=== PATIENT | female | born 1960 | race Caucasian/White ===

== ENCOUNTER → 2017-08-03 | Outpatient (CLI) | payer OTHER ==
[~2017-08-03] MED LIST: ASPI81TA94 PO; AZAT50TA25 PO; BRIM5DRO7 OP; CHOL500045 PO; LACT1CAP4 PO; MULT-1377 PO; OMEG500C5 PO; TURM500C7 PO; [UNRECOGNIZED DRUG - CODE] IJ; [UNRECOGNIZED DRUG - CODE] PO
--- NOTE | 2017-08-04 09:54 | RADIOLOGY IMAGING REPORT ---
FACILITY: [facility] PATIENT NAME: VOLODYMYR MONROY : [id number] MR: [id number] V: [id number] EXAM DATE: [id number] ORDERING PHYSICIAN: ALANA KRAFT TECHNOLOGIST: Nazia Hunter PROCEDURE:LEFT DIGITAL DIAGNOSTIC MAMMOGRAM WITH CAD ASSISTED INTERPRETATION AND 3D BREAST TOMOSYNTHESIS. COMPARISON:None. INDICATIONS:LEFT BREAST LUMP 2 TO 3 O'CLOCK POSITION. FINDINGS: Moderately dense heterogeneous fibroglandular tissue is seen throughout the left breast. The parenchymal pattern has remained stable when allowing for difference in mammographic technique and patient positioning. There is no demonstration of malignant appearing mass, malignant appearing calcification or other secondary sign of malignancy in the left breast. Today's left breast ultrasound revealed a 4 mm tiny cyst in the 2 o'clock position of the left breast which likely does not account for patient's palpable findings. DIAGNOSTIC CATEGORY 2--BENIGN FINDING. RECOMMENDATIONS: ROUTINE MAMMOGRAM AND CLINICAL EVALUATION. IMPRESSION: BI-RADS 2: No significant abnormality of the left breast is seen. Clinical followup recommended for patient's palpable findings. Of note, a negative mammogram or ultrasound report should not preclude biopsy of a clinically suspicious lesion. Dictated by: Caitie Bates M.D. on 08/03/2017 at 16:06 Transcribed by: CARI on 08/03/2017 at 20:00 Approved by: Caitie Bates M.D. on 08/04/2017 at 9:53 [facility]
--- NOTE | 2017-08-04 09:54 | RADIOLOGY IMAGING REPORT ---
FACILITY: [facility] PATIENT NAME: VOLODYMYR MONROY : [id number] MR: [id number] V: [id number] EXAM DATE: ORDERING PHYSICIAN: ALANA KRAFT TECHNOLOGIST: Star Kumar PROCEDURE: LEFT BREAST ULTRASOUND COMPARISON:None. INDICATIONS:LEFT BREAST MASS 2 TO 3 O'CLOCK POSITION. FINDINGS: The entire left breast was imaged. At the time of the sonogram the patient stated her area of interest was 12:30 although the paperwork states 2 to 3 o'clock. No sonographic abnormality was identified throughout the left breast other than a 4 mm cyst in the 2 o'clock position. DIAGNOSTIC CATEGORY 2--BENIGN FINDING. RECOMMENDATIONS: ROUTINE MAMMOGRAM AND CLINICAL EVALUATION. CLINICAL EVALUATION. IMPRESSION: BI-RADS 2: There is a 4 mm cyst in the 2 o'clock position of the left breast. Clinical followup recommended for patient's palpable findings. Dictated by: Caitie Bates M.D. on 08/03/2017 at 16:07 Transcribed by: CARI on 08/03/2017 at 19:50 Approved by: Caitie Bates M.D. on 08/04/2017 at 9:53 [facility]
== END ==
LOC: US 02:22
PROVIDERS: ATTEND Family Medicine
DX: N60.02 Solitary cyst of left breast (principal)
CPT/HCPCS: 77065

== ENCOUNTER → 2018-03-18 | Outpatient (CLI) | payer OTHER ==
[2018-03-18 10:53] LABS: LDL CHOLESTEROL 143 mg/dl
== END ==
LOC: LAB 10:21
PROVIDERS: ATTEND Family Medicine
DX: E78.5 Hyperlipidemia, unspecified (principal); H34.239 Retinal artery branch occlusion, unspecified eye; H54.7 Unspecified visual loss
CPT/HCPCS: 36415; 82040; 82247; 82310; 82374; 82435; 82465; 82565; 82947; 83718; 84075; 84132; 84155; 84295; 84450; 84460; 84478; 84520; 85027

== ENCOUNTER → 2018-08-21 | Outpatient (CLI) | payer OTHER ==
[2018-08-21 08:27] LABS: PLATELET COUNT, AUTOMATED 261 K/uL (150-450)
[2018-08-21 08:45] LABS: LDL CHOLESTEROL 149 mg/dl
== END ==
LOC: LAB 07:48
PROVIDERS: ATTEND Family Medicine
DX: H34.9 Unspecified retinal vascular occlusion (principal); E78.5 Hyperlipidemia, unspecified; R73.01 Impaired fasting glucose
CPT/HCPCS: 36415; 82040; 82247; 82310; 82374; 82435; 82465; 82565; 82947; 83036; 83718; 84075; 84132; 84155; 84295; 84450; 84460; 84478; 84520; 85025

== ENCOUNTER → 2019-02-16 | Outpatient (CLI) | payer OTHER ==
[2019-02-16 11:19] LABS: LDL CHOLESTEROL 166 mg/dl
== END ==
LOC: LAB 09:31
PROVIDERS: ATTEND Family Medicine
DX: E78.5 Hyperlipidemia, unspecified (principal)
CPT/HCPCS: 36415; 82040; 82247; 82310; 82374; 82435; 82465; 82565; 82947; 83718; 84075; 84132; 84155; 84295; 84450; 84460; 84478; 84520